=== PATIENT | female | born 1950 | race Caucasian/White ===

== ENCOUNTER 2018-11-10 16:29 | Emergency (ER) | payer OTHER ==
--- NOTE | 2018-11-10 17:05 | ED Physician Documentation ---
General Adult - HISTORIAN Historian: patient - HPI Stated Complaint: dental pain on right lower jaw Chief Complaint: General Adult Onset: days ago Timing: still present Severity: moderate Further Comments: yes (Pt is a 67 yo female with dental pain in her lower front jaw x 1 day.) - ROS CONST: no problems EYES/ENT: other (dental pain) CVS/RESP: none GI/: none MS/SKIN/LYMPH: none - PAST HX Past History: other (DM, HTN) Allergies/Adverse Reactions: Allergies Allergy/AdvReac Type Severity Reaction Status Date / Time codeine Allergy Verified 11/10/18 17:08 Penicillins Allergy Verified 11/10/18 17:08 Home Medications: Ambulatory Orders Medication Instructions Recorded Unobtainable 11/10/18 - SOCIAL HX Smoking History: non-smoker - FAMILY HX Family History: No - VITAL SIGNS Vital Signs: Vital Signs Temp Pulse Resp BP Pulse Ox 98.5 F 78 19 157/70 98 11/10/18 16:53 11/10/18 16:53 11/10/18 16:53 11/10/18 16:53 11/10/18 16:53 - REVIEWED ASSESSMENTS Nursing Assessment Reviewed: Yes Vitals Reviewed: Yes Progress - Progress Progress: Rx Keflex 500 mg po tid x 10 days, 1st dose in ER. Pt states that she has had Keflex in the past. Rx [place] (5/325). 1 po q 6 h prn #10. Pt states that she has had vicodin in the past. General Adult Physical Exam - PHYSICAL EXAM GENERAL APPEARANCE: moderate distress EENT: pharynx normal, other (poor dentition) NECK: normal inspection, supple RESPIRATORY: no resp distress, chest non-tender, breath sounds normal CVS: reg rate & rhythm, heart sounds normal BACK: normal inspection SKIN: warm/dry, normal color EXTREMITIES: non-tender, normal range of motion, no evidence of injury NEURO: oriented X3, motor nml, sensation nml Discharge Clincal Impression: Pain, dental Referrals: Yossi Rodrigues MD [Primary Care Provider] - Condition: Stable Disposition: 01 HOME, SELF-CARE Decision to Admit: NO Decision Time: 17:22
[2018-11-10] MEDS ORDERED: CEPHALEXIN 250 MG CAPSULE PO ONE (17:10)
[2018-11-10 17:11] VITALS: BP 157/70
== END 2018-11-10 17:24 | disposition home or self-care (01) ==
LOC: ED 16:29
DX: K08.89 Other specified disorders of teeth and supporting structures (principal)
CPT/HCPCS: 99281

== ENCOUNTER 2019-01-18 17:00 | Emergency (ER) | payer OTHER ==
[2019-01-18 17:40] VITALS: BP 144/52
--- NOTE | 2019-01-18 18:36 | ED Physician Documentation ---
General Adult - HISTORIAN Historian: patient - HPI Stated Complaint: fall, left rib pain Chief Complaint: General Adult Onset: hours Timing: still present Severity: moderate Further Comments: yes (Pt is a 68 yo female who [place]. Pt says she just tripped over herself. Pt struck her L side in the fall and has L chest wall/rib pain. No other complaint. No neck pain or head injury. Pain occurs with movement or with deep breath. Pt is not sob.) - ROS CONST: no problems EYES/ENT: none CVS/RESP: other (L chest wall/rib pain) GI/: none MS/SKIN/LYMPH: other (L chest wall pain) - PAST HX Past History: other (anemia, DM, CAD, HLD, HTN, neuropathy) Surgeries/Procedures: hysterectomy Allergies/Adverse Reactions: Allergies Allergy/AdvReac Type Severity Reaction Status Date / Time codeine Allergy Verified 01/18/19 17:29 Penicillins Allergy Verified 01/18/19 17:29 Home Medications: Ambulatory Orders Medication Instructions Recorded Hydrochlorothiazide 25 mg PO DAILY 01/18/19 Lisinopril 40 mg PO DAILY 01/18/19 Lovastatin 40 mg PO HS 01/18/19 Metformin HCl [Glucophage] 1,000 mg PO BID 01/18/19 amLODIPine BESYLATE [Norvasc] 10 mg PO DAILY 01/18/19 - SOCIAL HX Smoking History: other (unknown if ever smoked) - FAMILY HX Family History: No - VITAL SIGNS Vital Signs: Vital Signs Temp Pulse Resp BP Pulse Ox 87 22 144/52 97 01/18/19 17:20 01/18/19 17:20 01/18/19 17:20 01/18/19 17:20 - REVIEWED ASSESSMENTS Nursing Assessment Reviewed: Yes Vitals Reviewed: Yes Progress - Progress Progress: Lidoderm 5% patch applied in ER. Rx Lidoderm 5% patch. Apply to intact skin in affected area. Cut to size. Must remove patch for 12 hours/day. (5 patches with 3 refills) Follow up with primary provider if symptoms do not improve or you have new concerns. ED Results Lab/Radiology - Orders Orders: ED Orders Category Date Time Status RIBS UNILATERAL W/ PA CHEST [RAD] Stat Exams 01/18/19 Ordered General Adult Physical Exam - PHYSICAL EXAM GENERAL APPEARANCE: mild distress NECK: normal inspection, supple RESPIRATORY: no resp distress, breath sounds normal, other (point tenderness L anterior chest wall, below breast) CVS: reg rate & rhythm, heart sounds normal ABDOMEN: soft, no organomegaly, normal bowel sounds BACK: normal inspection, no CVA tenderness SKIN: warm/dry, normal color EXTREMITIES: non-tender, normal range of motion, no evidence of injury NEURO: oriented X3, motor nml Discharge Clincal Impression: Rib pain on left side Referrals: Yossi Rodrigues MD [Primary Care Provider] - Condition: Stable Disposition: 01 HOME, SELF-CARE Decision to Admit: NO Decision Time: 18:36
[2019-01-18] MEDS ORDERED: LIDOCAINE HCL 5% ADH..PATCH TP ONE (18:38)
--- NOTE | 2019-01-19 16:53 | Diagnostic Imaging Report ---
MAGDIEL NUR [facility] [address] [facility] [address] [place], [place]. [address] Report Submission Date: Jan 18, 2019 6:04:17 PM CDT Patient Study Name: LJ IZQUIERDO Date: Jan 18, 2019 5:38:27 PM CDT Modality Type: DX Gender: F Description: RIBS UNILATERAL W/ PA CHEST : 46 Institution: [facility] Physician: MAGDIEL NUR Exam: Right ribs with PA chest. History: Status post fall. Lung knutson are well aerated without eran consolidation or effusion. Heart and mediastinal contour are normal. AP and oblique views of the left hemithorax are submitted. The bony elements of the left hemithorax are grossly intact. No pleural or periosteal reaction is seen. No pneumothorax is identified. Impression: No bony abnormality to the left hemithorax. No eran consolidation or effusion. Electronically signed on Jan 18, 2019 6:04:17 PM CDT by: Mendoza CANTU
== END 2019-01-18 18:44 | disposition home or self-care (01) ==
LOC: ED 17:00
DX: R07.81 Pleurodynia (principal)
CPT/HCPCS: 71101; 99282